=== PATIENT | female | born 1965 | race Caucasian/White ===

== ENCOUNTER 2019-12-22 18:55 | Emergency (ER) | payer MEDICARE, SELFPAY ==
--- NOTE | ~2019-12-22 | CT_ITS ---
EXAMINATION: CT abdomen pelvis w con EXAM DATE: 12/22/2019 20:37 INDICATION: Nausea vomiting, abdominal pain. TECHNIQUE: Spiral CT of the abdomen and pelvis was performed following intravenous injection of 100 m L Omnipaque 350. Axial, coronal and sagittal images were reviewed. The dose-length product (DLP) fo r this examination was 699.55 mGy-cm. The exposure was tailored according to patient size (auto mA e xposure control), and iterative reconstruction (ASIR) was used as additional dose reduction technique . Comparison is made to prior examination from 08/22/2008. FINDINGS: The liver, spleen, adrenal glands and pancreas are unremarkable. There are cholecystectomy clips. Portal and splenic veins are patent. Kidneys enhance symmetrically. There is no hydronephr osis. The uterus is unremarkable. The bladder is unremarkable. There is no retroperitoneal or pe lvic lymphadenopathy. There is moderate scattered arteriosclerotic disease. The appendix is normal. There are surgical changes from intact gastric bypass surgery. There is exp ected amount of colonic stool. No free intraperitoneal gas. The heart is normal in size. There a re no pericardial or pleural effusions. The lung bases are unremarkable. There are no osteoblastic or osteolytic lesions identified. L3-4 fusion hardware. IMPRESSION: 1. No acute intra-abdominal findings. 2. Surgical changes. Reviewed, dictated and finalized at location A.
--- NOTE | 2019-12-22 19:00 | ED.ABDPAIN ---
HPI - Abdominal Pain General Chief Complaint: Abdominal Pain Stated Complaint: abd pain Time Seen by Provider: 12/22/19 18:59 Source: patient and RN notes reviewed Mode of arrival: EMS Limitations: no limitations History of Present Illness HPI narrative: A 54 y/o female presents to the ED via EMS with intermittent, periumbilical ABD pain for the past 3 weeks. She states that her pain is aggravated when she eats. She reports associated N/V and mild dysuria. She denies any diarrhea, fevers, chills, hematuria, or urinary frequency. MD elicited complaint: abdominal pain Onset (ago): week(s) (3) Pain Consistency: intermittent Location: periumbilical Exacerbating factors: eating Associated symptoms: nausea, vomiting and dysuria (mild) Related Data Allergies Allergy/AdvReac Type Severity Reaction Status Date / Time No Known Allergies Allergy Mild Verified 08/18/09 09:58 Review of Systems Review of Systems: All systems reviewed & are unremarkable except as noted in HPI and below Constitutional: Constitutional: Denies chills and Denies fever(s) Gastrointestinal: Gastrointestinal: Reports abdominal pain (periumbilical), Denies diarrhea, Reports nausea and Reports vomiting Genitourinary: Genitourinary: Denies hematuria, Denies nocturia and Reports dysuria (mild) FOR[facility]LY [facility] Past Medical History Medical History (Updated 12/22/19 @ 21:56 by Kendra Jordan MD) DM (diabetes mellitus) H/O: HTN (hypertension) Hx of breast cancer Surgical History Surgical History (Updated 12/22/19 @ 19:36 by Quentin Mason) History of appendectomy History of cholecystectomy History of gastric bypass History of mastectomy Social History Social History (Updated 12/22/19 @ 19:35 by Quentin Mason) Smoking status: Never smoker Exam Const: General: cooperative, alert and acute distress Nutritional Appearance: well nourished Orientation/consciousness: patient oriented x3 Limitations: no limitations HENMT: Mouth: Yes lip normal and Yes moist mucous membranes Teeth and gingiva: other (Edentulous) Resp: Effort & Inspection: normal respiratory effort Auscultation: clear to auscultation bilaterally Cardio: Rate: regular rate Rhythm: regular rhythm GI: GI Palp: Yes Soft to palpation and Yes Tenderness to palpation present (GI) (mild diffuse) Auscultation: normal bowel sounds Skin: General skin exam: normal color Neuro: General: patient oriented x3 Cognition (Neuro): normal cognition Speech: normal speech Extrem: General: normal to inspection, full ROM and no clubbing, cyanosis or edema Psych: Appearance: other (tearful and rolling around on the bed) Speech and movement: Restless speech present Affect: Anxious affect present Attitude: cooperative Course Course Emergency Course: Patient feeling better after Haldol, acetaminophen, and IV fluids. Patient calm and cooperative. Testing unremarkable for acute findings other than some anemia. CT scan shows no acute pathology. Patient is requesting to go home. Will provide medications to take for symptomatic management advised importance of primary care follow-up. Vital Signs Vital signs: Vital Signs Temperature 98.2 F 12/22/19 19:01 Pulse Rate 86 12/22/19 19:01 Respiratory Rate 30 H 12/22/19 19:01 Blood Pressure 176/117 H 12/22/19 19:01 Pulse Oximetry 100 12/22/19 19:01 Temperature 98.2 F 12/22/19 19:01 Pulse Rate 80 12/22/19 21:44 Respiratory Rate 18 12/22/19 21:44 Blood Pressure 132/80 12/22/19 21:44 Pulse Oximetry 98 12/22/19 21:44 MDM - Abdominal Pain Lab Data Attestation: I reviewed the patient's lab results. Result diagrams: 12/22/19 19:42 12/22/19 19:42 Labs: Lab Results 12/22/19 12/22/19 12/22/19 Range/Units 19:42 19:42 19:42 WBC 7.8 (4.5-10.0) K/mm3 RBC 3.77 L (4.2-5.4) M/mm3 Hgb 9.8 L (12.0-15.0) g/dL Hct 32.1 L (37.0-47.0) % MCV 85.1 (80-100) fl MCH 26.0 (26-34) pg
[2019-12-22 19:01] VITALS: BP 176/117; PULSE 86; RESP 30; TEMP 36.8; O2SAT 100
[2019-12-22] MEDS: HALOPERIDOL LACTATE 5 MG/ML VIAL IM (19:19)
[2019-12-22] MEDS: LACTATED RINGERS 1,000 ML 999 ML IV CONT (19:19)
[2019-12-22 19:48] LABS: Basophils Percent Auto 0.4 % (0.2-1.2); Eosinophils Absolute Auto 0.1 K/mm3 (0-0.3); Eosinophils Percent Auto 0.6 % (0-4.4); Hematocrit 32.1 % (37.0-47.0); Hemoglobin 9.8 g/dL (12.0-15.0); Immature Granulocyte Absolute 0.01 K/mm3 (0.00-0.031); Immature Granulocyte Percent A 0.1 % (0-0.5); Lymphocytes Absolute Auto 1.21 K/mm3 (0.9-3.2); Lymphocytes Percent Auto 15.6 % (18.3-44.2); Mean Corpuscular HGB Conc 30.5 g/dl (32-36); Mean Corpuscular Volume 85.1 fl (80-100); Mean Platelet Volume 10.1 fl (7.4-10.4); Monocytes Absolute Auto 0.3 K/mm3 (0.1-0.6); Monocytes Percent Auto 3.9 % (2.6-8.5); Neutrophils Absolute Auto 6.2 K/mm3 (1.3-6.7); Neutrophils Percent Auto 79.4 % (45.5-73.1); Platelet Count Result 298 k/mm3 (150-375); Red Blood Count 3.77 M/mm3 (4.2-5.4); Red Cell Distribution Width 15.1 % (11.5-14.5); White Blood Count 7.8 K/mm3 (4.5-10.0)
[2019-12-22 19:58] LABS: Lactic Acid Reflex 1.9 mmol/L (0.7-2.1)
[2019-12-22 19:59] LABS: Alanine Aminotransferase 15 U/L (4-35); Albumin Level 4.3 g/dL (3.5-5.1); Alkaline Phosphatase 92 U/L (38-126); Aspartate Amino Transferase 25 U/L (14-36); Bilirubin,Total 0.5 mg/dL (0.2-1.3); Blood Urea Nitrogen 13 mg/dL (7-17); Calcium 9.1 mg/dL (8.4-10.2); Carbon Dioxide 23 mmol/L (22-30); Chloride 100 mmol/L (98-107); Estimated Glomerular Filt Rate > 60; Glucose 121 mg/dL (65-105); Lipase 71 U/L (23-300); Potassium 3.2 mmol/L (3.4-5.0); Prothrombin Time 12.7 Seconds (11.1-14.7); Sodium 135 mmol/L (137-145)
[2019-12-22 20:00] LABS: Partial Thromboplastin Time 24.4 SECONDS (22.3-36.8)
[2019-12-22 21:11] LABS: Add Urine Microscopic? YES; Appearance Urine Clear (Clear); Bacteria Urine Trace /hpf; Bilirubin Urine Negative (Negative); Blood Urine Negative (Negative); Color Urine Yellow (Yellow); Glucose Urine UA Negative (Negative); Ketones Urine Trace mg/dL (Negative); Leukocyte Esterase Ur 1+ LEU/UL (Negative); Mucus Urine Rare /lpf; Nitrate Urine Negative (Negative); Protein Urine Negative (Negative); RBC Urine 0-2 /hpf (0-2); Specific Grav Ur 1.025 (1.001-1.035); Squamous Epithelial Cell Urine Many /hpf (Few); Urobilinogen Urine Negative mg/dL (<2.0); WBC Urine 0-3 /hpf
[2019-12-22 21:44] VITALS: BP 132/80; PULSE 80; RESP 18; O2SAT 98
[2019-12-22 22:35] VITALS: BP 132/80; PULSE 80; RESP 20; TEMP 36.7; O2SAT 99
== END 2019-12-22 22:36 | disposition home or self-care (01) ==
PROVIDERS: Emergency Provider Emergency Medicine; PCP Family Medicine
DX: R10.84 Generalized abdominal pain (principal); E11.9 Type 2 diabetes mellitus without complications; I10 Essential (primary) hypertension; Z85.3 Personal history of malignant neoplasm of breast; Z90.10 Acquired absence of unspecified breast and nipple; Z98.84 Bariatric surgery status
CPT/HCPCS: 36415; 74177; 80053; 81001; 83605; 83690; 85025; 85610; 85730; 87804; 96365; 96372; 99284; J0131; J1630; J7120; Q9967